=== PATIENT | female | born 1950 | race Caucasian/White ===

== ENCOUNTER 2017-05-23 18:44 | Emergency (ER) | payer OTHER ==
[~2017-05-23] VITALS: Ht 165.1 cm; Wt 103.6 kg
[2017-05-23] MEDS ORDERED: ULTRACET1 TABLET PO (22:32)
[2017-05-23] MEDS ORDERED: MOTRIN600 MG PO (22:32)
[2017-05-23 23:06] VITALS: BP 175/86
== END 2017-05-23 23:07 | disposition home or self-care (01) ==
LOC: EME 18:44
DX: S40.021A Contusion of right upper arm, initial encounter (principal); V49.50XA Passenger injured in collision with unspecified motor vehicles in traffic accident, initial encounter
CPT/HCPCS: 73060; 99281; 99284